=== PATIENT | male | born 1975 | race Caucasian/White ===

== ENCOUNTER 2024-03-25 17:26 | Inpatient (IN) | payer MEDICAID ==
[~2024-03-25] VITALS: Ht 160 cm; Wt 65.8 kg
[2024-03-25 17:42] VITALS: BP_SYST 115; PULSE 84; RESP 18; RESP 22; TEMP 97.8; O2SAT 98
[2024-03-25] MEDS: ONDANSETRON HCL 4 MG/2 ML VIAL IVP ONE (18:27)
[2024-03-25] MEDS: NACL 0.9% 1,000 ML IV ONE ×3 (18:29→19:53)
[2024-03-25 18:40] LABS: BASOPHILS % (AUTO) 0.2 % (0.0-2.0); EOSINOPHILS % (AUTO) 0.2 % (0.0-4.0); HEMATOCRIT 35.9 % (36-54); HEMOGLOBIN 12.8 g/dL (14.0-18.0); LYMPHOCYTES # (AUTO) 0.7 K/uL (1.0-5.5); LYMPHOCYTES % (AUTO) 10.4 % (20.5-51.5); MEAN CORPUSCULAR HEMOGLOBIN 30 pg (27-31); MEAN CORPUSCULAR HGB CONC 36 % (32-36); MEAN CORPUSCULAR VOLUME 84 fL (79.0-98.0); MONOCYTES # (AUTO) 0.5 K/uL (0.0-1.0); MONOCYTES % (AUTO) 6.5 % (1.7-9.3); NEUTROPHILS # (AUTO) 5.8 K/uL (1.8-7.7); NEUTROPHILS % (AUTO) 82.7 % (40.0-70.0); PLATELET COUNT (AUTO) 244 K/uL (130-430); RED CELL DISTRIBUTION WIDTH 12.6 % (9.0-15.0)
[2024-03-25 19:06] LABS: BLOOD GAS HCO3 16.7 mmol/L (21.0-27.0); BLOOD GAS PCO2 30.3 mmHg (32.0-45.0); BLOOD GAS PH 7.359 (7.350-7.450); BLOOD GAS PO2 82.3 mmHg (75.0-100.0)
[2024-03-25 19:07] LABS: ABG O2 SAT% ESTIMATE 95.9 % (94.0-100.0); ALLEN'S TEST POSITIVE (P); BLOOD GAS BASE EXCESS -7.5 mmol/L (-3.0-3.0); FRACTIONATED INSPIRED OXYGEN 0.21 % (0.21-100.00)
[2024-03-25 19:10] LABS: ALANINE AMINOTRANSFERASE 79 U/L (12-78); ALBUMIN 3.5 g/dL (3.4-4.8); ANION GAP 18 (5-15); ASPARTATE AMINOTRANSFERASE 34 U/L (10-37); BILIRUBIN,DIRECT 0.2 mg/dL (0.0-0.3); CALCIUM 8.6 mg/dL (8.4-11.0); CARBON DIOXIDE 22 mmol/L (23-29); GFR AFRICAN AMERICAN 5 mL/min (>90); LIPASE 108 U/L (16-77); POTASSIUM 4.6 mmol/L (3.5-5.1); SODIUM SERUM 124 mmol/L (136-145); TOTAL BILIRUBIN 0.9 mg/dL (0.0-1.0); TOTAL PROTEIN, SERUM 7.7 g/dL (6.4-8.3); UREA NITROGEN, BLOOD 97 mg/dL (8-21)
[2024-03-25 19:13] LABS: GFR NON AFRICAN-AMERICAN 4 mL/min (>90)
[2024-03-25 19:16] LABS: CREATININE 13.65 mg/dL (0.55-1.30); GLUCOSE 634 mg/dL (74-106)
[2024-03-25 19:17] LABS: CHLORIDE 84 mmol/L (98-107)
[2024-03-25 19:32] LABS: ACETONE, SERUM NEGATIVE (NEGATIVE)
[2024-03-25] MEDS ORDERED: CALC-827 PO (19:44)
[2024-03-25] MEDS ORDERED: METF1000 PO (19:44)
[2024-03-25] MEDS ORDERED: NOR10 PO (19:44)
[2024-03-25] MEDS ORDERED: INSU100V53 SQ (19:44)
[2024-03-25] MEDS ORDERED: ATOR10TA68 PO (19:44)
[2024-03-25] MEDS ORDERED: [UNRECOGNIZED DRUG - CODE] PO (19:44)
[2024-03-25] MEDS ORDERED: LISI40TA20 PO (19:44)
[2024-03-25] MEDS ORDERED: INSULIN REGULAR, HUMAN 10 UNITS/0.1 ML, 3 ML VIAL ONE (19:50)
[2024-03-25] MEDS: INSULIN REGULAR, HUMAN 100 UNITS in NS 99 ML IV ONE (20:01)
[2024-03-25 21:08] VITALS: BP_SYST 144; PULSE 84; RESP 8; TEMP 98.7; O2SAT 96
[2024-03-25 22:00] VITALS: BP_SYST 123; PULSE 83; RESP 17; O2SAT 98
[2024-03-25 22:49] LABS: CALCIUM 8.1 mg/dL (8.4-11.0); POTASSIUM 3.3 mmol/L (3.5-5.1)
[2024-03-25 22:54] LABS: BILIRUBIN,URINE NEGATIVE (NEGATIVE); BLOOD, URINE 2+ (NEGATIVE); CLARITY/URINE CLEAR (CLEAR); COLOR,URINE YELLOW (YELLOW); GLUCOSE,URINE 3+ (NEGATIVE); KETONES,URINE TRACE (NEGATIVE); LEUKOCYTE ESTERASE ,URINE NEGATIVE (NEGATIVE); NITRITE, URINE NEGATIVE (NEGATIVE); PH,URINE 6.5 (5.0-8.0); PROTEIN URINE 1+ (NEGATIVE); UROBILINOGEN,URINE 0.2 (0.2-1.0)
[2024-03-25 23:00] VITALS: BP_SYST 114; PULSE 78; RESP 17; O2SAT 97
[2024-03-25 23:05] LABS: CREATININE 12.42 mg/dL (0.55-1.30)
[2024-03-25 23:11] LABS: BARBITURATE, URINE NEGATIVE (NEG <=200); BENZODIAZEPINE, URINE NEGATIVE (NEG <=150); CANNABINOID, URINE NEGATIVE (NEG <=50); COCAINE, URINE NEGATIVE (NEG <=150); METHAMPHETAMINES SCREEN,URINE NEGATIVE (NEG <=500); OPIATE, URINE NEGATIVE (NEG <=100); PHENCYCLIDINE SCREEN,URINE NEGATIVE (NEG <=25); URINE AMPHETAMINE NEGATIVE (NEG <=500); URINE METHADONE NEGATIVE (NEG <=200); URINE OXYCODONE SCREEN NEGATIVE (NEG <=100)
[2024-03-25] MEDS: PANTOPRAZOLE SODIUM 40 MG/VIAL (PROTONIX) IVP ONE (23:11)
[2024-03-25 23:12] LABS: UR TRICYCLIC ANTIDEPRESSANTS NEGATIVE (NEG <=300)
[2024-03-25] MEDS ORDERED: cloNIDine HCL 0.1 MG TABLET PO PRN (23:30)
[2024-03-25 23:41] LABS: BACTERIA,URINE None Seen /HPF (None Seen)
[2024-03-26] VITALS (16 sets, daily range): BP systolic 92–145; PULSE 62–95; RESP 11–22; TEMP 97.5–98.8; O2SAT 96–98
[2024-03-26] MEDS ORDERED: cloNIDine HCL 0.1 MG TABLET PO PRN
[2024-03-26] MEDS: POTASSIUM CHLORIDE 20 MEQ TABLET.ER PO ONE (00:31)
[2024-03-26] MEDS: NACL 0.9% 1,000 ML IV SCH (01:05)
[2024-03-26 02:25] LABS: CALCIUM 7.9 mg/dL (8.4-11.0)
[2024-03-26 02:33] LABS: CREATININE 11.24 mg/dL (0.55-1.30)
[2024-03-26] MEDS: ONDANSETRON HCL 4 MG/2 ML VIAL IVP PRN (05:21)
[2024-03-26] MEDS: INSULIN REGULAR, HUMAN 100 UNITS/ML, 3 ML VIAL (humuLIN R) SUBCUT PRN (06:25)
[2024-03-26 06:37] LABS: BASOPHILS % (AUTO) 0.2 % (0.0-2.0); EOSINOPHILS # (AUTO) 0.1 K/uL (0.0-0.4); HEMATOCRIT 35.9 % (36-54); HEMOGLOBIN 12.4 g/dL (14.0-18.0); LYMPHOCYTES # (AUTO) 1.1 K/uL (1.0-5.5); LYMPHOCYTES % (AUTO) 15.1 % (20.5-51.5); MEAN CORPUSCULAR HEMOGLOBIN 28 pg (27-31); MEAN CORPUSCULAR HGB CONC 34 % (32-36); MEAN CORPUSCULAR VOLUME 82 fL (79.0-98.0); MONOCYTES # (AUTO) 0.7 K/uL (0.0-1.0); MONOCYTES % (AUTO) 10.3 % (1.7-9.3); NEUTROPHILS # (AUTO) 5.1 K/uL (1.8-7.7); NEUTROPHILS % (AUTO) 73.4 % (40.0-70.0); PLATELET COUNT (AUTO) 259 K/uL (130-430); RED BLOOD CELL COUNT(AUTO) 4.38 MIL/uL (4.2-6.2); RED CELL DISTRIBUTION WIDTH 12.8 % (9.0-15.0)
[2024-03-26 06:49] LABS: INR 0.9 (0.80-1.20); PROTHROMBIN TIME 9.9 SECS (9.5-12.5)
[2024-03-26 07:06] LABS: CALCIUM 8.1 mg/dL (8.4-11.0); PHOSPHORUS 7.8 mg/dL (2.7-4.5); POTASSIUM 3.3 mmol/L (3.5-5.1); TOTAL BILIRUBIN 0.6 mg/dL (0.0-1.0); TOTAL PROTEIN, SERUM 6.8 g/dL (6.4-8.3)
[2024-03-26 07:07] LABS: CREATININE 10.98 mg/dL (0.55-1.30)
[2024-03-26] MEDS: ATORVASTATIN 10 MG TABLET PO SCH (09:10)
[2024-03-26] MEDS: amLODIPine BESYLATE 10 MG TABLET PO SCH (09:10)
[2024-03-26] MEDS: PANTOPRAZOLE SODIUM 40 MG/VIAL (PROTONIX) IVP SCH (09:11)
[2024-03-26] MEDS: INSULIN GLARGINE 100 UNITS/ML, 10 ML VIAL SUBCUT ONE (11:52)
[2024-03-26] MEDS ORDERED: INSULIN LISPRO SLIDING SCALE 100 UNITS/ML, 3 ML VIAL (humaLOG) SUBCUT PRN ×2 (15:15→21:13)
[2024-03-26] MEDS: INSULIN NPH 100 UNITS/ML 10 ML VIAL SUBCUT ONE (15:47)
[2024-03-26] MEDS: INSULIN Lispro 100 UNITS/ML, 3 ML VIAL (humaLOG) SUBCUT SCH (16:55)
[2024-03-26] MEDS: INSULIN GLARGINE 100 UNITS/ML, 10 ML VIAL SUBCUT SCH (21:06)
[2024-03-27] VITALS (8 sets, daily range): BP systolic 103–153; PULSE 63–108; RESP 15–19; TEMP 97.1–98.6; O2SAT 96–98
[2024-03-27 06:31] LABS: ALBUMIN 2.7 g/dL (3.4-4.8); POTASSIUM 3.2 mmol/L (3.5-5.1); TOTAL BILIRUBIN 0.4 mg/dL (0.0-1.0); TOTAL PROTEIN, SERUM 6.4 g/dL (6.4-8.3)
[2024-03-27 06:53] LABS: BASOPHILS % (AUTO) 0.4 % (0.0-2.0); EOSINOPHILS # (AUTO) 0.1 K/uL (0.0-0.4); EOSINOPHILS % (AUTO) 1.2 % (0.0-4.0); HEMATOCRIT 33.5 % (36-54); HEMOGLOBIN 11.4 g/dL (14.0-18.0); LYMPHOCYTES # (AUTO) 1.3 K/uL (1.0-5.5); LYMPHOCYTES % (AUTO) 18.3 % (20.5-51.5); MEAN CORPUSCULAR HEMOGLOBIN 28 pg (27-31); MEAN CORPUSCULAR HGB CONC 34 % (32-36); MEAN CORPUSCULAR VOLUME 83 fL (79.0-98.0); MONOCYTES # (AUTO) 0.7 K/uL (0.0-1.0); MONOCYTES % (AUTO) 9.7 % (1.7-9.3); NEUTROPHILS % (AUTO) 70.4 % (40.0-70.0); PLATELET COUNT (AUTO) 259 K/uL (130-430); RED BLOOD CELL COUNT(AUTO) 4.05 MIL/uL (4.2-6.2); WHITE BLOOD COUNT (AUTO) 7.1 K/uL (4.8-10.8)
[2024-03-27 07:57] LABS: CREATININE 8.51 mg/dL (0.55-1.30)
[2024-03-27] MEDS ORDERED: INSULIN GLARGINE 100 UNITS/ML, 10 ML VIAL SUBCUT SCH (09:00)
[2024-03-27] MEDS: POTASSIUM CHLORIDE 20 MEQ TABLET.ER PO PRN (09:54)
[2024-03-27] MEDS: INSULIN LISPRO SLIDING SCALE 100 UNITS/ML, 3 ML VIAL (humaLOG) SUBCUT PRN (11:46)
[2024-03-27] MEDS: TAMSULOSIN HCL 0.4 MG CAP PO SCH (21:08)
[2024-03-28] VITALS (7 sets, daily range): BP systolic 111–128; PULSE 67–92; RESP 16–20; TEMP 97.4–98.4; O2SAT 96–98
[2024-03-28 06:07] LABS: HEPATITIS B SURFACE AG Negative (Negative); HEPATITIS C VIRUS AB Non Reactive (Non Reactive)
[2024-03-28 06:21] LABS: BASOPHILS % (AUTO) 0.4 % (0.0-2.0); EOSINOPHILS # (AUTO) 0.1 K/uL (0.0-0.4); EOSINOPHILS % (AUTO) 1.7 % (0.0-4.0); HEMATOCRIT 32.7 % (36-54); HEMOGLOBIN 11.4 g/dL (14.0-18.0); LYMPHOCYTES # (AUTO) 1.7 K/uL (1.0-5.5); LYMPHOCYTES % (AUTO) 24.5 % (20.5-51.5); MEAN CORPUSCULAR HEMOGLOBIN 29 pg (27-31); MEAN CORPUSCULAR HGB CONC 35 % (32-36); MEAN CORPUSCULAR VOLUME 83 fL (79.0-98.0); MONOCYTES # (AUTO) 0.5 K/uL (0.0-1.0); MONOCYTES % (AUTO) 7.4 % (1.7-9.3); NEUTROPHILS # (AUTO) 4.5 K/uL (1.8-7.7); PLATELET COUNT (AUTO) 255 K/uL (130-430); RED BLOOD CELL COUNT(AUTO) 3.97 MIL/uL (4.2-6.2); RED CELL DISTRIBUTION WIDTH 12.8 % (9.0-15.0); WHITE BLOOD COUNT (AUTO) 6.8 K/uL (4.8-10.8)
[2024-03-28 07:10] LABS: ALBUMIN 2.7 g/dL (3.4-4.8); CALCIUM 8.1 mg/dL (8.4-11.0); CREATININE 5.7 mg/dL (0.55-1.30); POTASSIUM 3.2 mmol/L (3.5-5.1); TOTAL BILIRUBIN 0.4 mg/dL (0.0-1.0); TOTAL PROTEIN, SERUM 6.4 g/dL (6.4-8.3)
[2024-03-28] MEDS: NACL 0.9% 1,000 ML IV SCH (08:51)
[2024-03-28] MEDS: INSULIN Lispro 100 UNITS/ML, 3 ML VIAL (humaLOG) SUBCUT SCH (12:27)
[2024-03-28] MEDS: CHOLECALCIFEROL (VITAMIN D3) 2,000 UNIT TABLET PO ONE (12:29)
[2024-03-28] MEDS ORDERED: INSULIN GLARGINE 100 UNITS/ML, 10 ML VIAL SUBCUT SCH (21:00)
[2024-03-28] MEDS: INSULIN GLARGINE 100 UNITS/ML, 10 ML VIAL SUBCUT SCH (21:19)
[2024-03-29] VITALS (7 sets, daily range): BP systolic 111–120; PULSE 63–78; RESP 16–18; TEMP 97.4–97.9; O2SAT 97–98
[2024-03-29 06:46] LABS: BASOPHILS % (AUTO) 0.3 % (0.0-2.0); EOSINOPHILS # (AUTO) 0.1 K/uL (0.0-0.4); EOSINOPHILS % (AUTO) 2.4 % (0.0-4.0); HEMATOCRIT 30.5 % (36-54); HEMOGLOBIN 10.7 g/dL (14.0-18.0); LYMPHOCYTES # (AUTO) 1.8 K/uL (1.0-5.5); LYMPHOCYTES % (AUTO) 31.3 % (20.5-51.5); MEAN CORPUSCULAR HEMOGLOBIN 29 pg (27-31); MEAN CORPUSCULAR HGB CONC 35 % (32-36); MEAN CORPUSCULAR VOLUME 82 fL (79.0-98.0); MONOCYTES # (AUTO) 0.4 K/uL (0.0-1.0); MONOCYTES % (AUTO) 7.4 % (1.7-9.3); NEUTROPHILS # (AUTO) 3.4 K/uL (1.8-7.7); NEUTROPHILS % (AUTO) 58.6 % (40.0-70.0); PLATELET COUNT (AUTO) 252 K/uL (130-430); RED BLOOD CELL COUNT(AUTO) 3.71 MIL/uL (4.2-6.2); RED CELL DISTRIBUTION WIDTH 12.8 % (9.0-15.0); WHITE BLOOD COUNT (AUTO) 5.8 K/uL (4.8-10.8)
[2024-03-29] MEDS: CHOLECALCIFEROL (VITAMIN D3) 2,000 UNIT TABLET PO SCH (08:20)
[2024-03-29 08:22] LABS: ALBUMIN 2.7 g/dL (3.4-4.8); CALCIUM 8.1 mg/dL (8.4-11.0); CREATININE 3.75 mg/dL (0.55-1.30); PHOSPHORUS 3.9 mg/dL (2.7-4.5); POTASSIUM 3.3 mmol/L (3.5-5.1); TOTAL BILIRUBIN 0.4 mg/dL (0.0-1.0); TOTAL PROTEIN, SERUM 6.3 g/dL (6.4-8.3)
[2024-03-29] MEDS ORDERED: INSU100V SUBCUT (17:50)
[2024-03-30 00:10] VITALS: BP_SYST 93; PULSE 65; RESP 16; TEMP 98.2; O2SAT 96
[2024-03-30 01:06] LABS: QUANTIFERON TB GOLD Negative (Negative)
[2024-03-30 08:00] VITALS: O2SAT 98
[2024-03-30 10:53] LABS: CALCIUM 8.5 mg/dL (8.4-11.0); CREATININE 3.02 mg/dL (0.55-1.30)
[2024-03-30 13:02] VITALS: BP_SYST 120; PULSE 61; RESP 17; TEMP 98; O2SAT 98
[2024-03-30 15:56] VITALS: BP_SYST 115; PULSE 61; RESP 17; TEMP 97.5; O2SAT 98
[2024-03-30 16:02] VITALS: BP_SYST 122; PULSE 78; RESP 18; TEMP 98.4; O2SAT 96
== END 2024-03-30 17:30 | disposition home health service (06) | DRG 420 ==
LOC: SED 17:26 → SIC 19:39 → STU 03-27 14:48 → SMU 03-30 03:00
PROVIDERS: ADMIT Internal Medicine; ATTEND Internal Medicine
DX: E11.65 Type 2 diabetes mellitus with hyperglycemia (principal); N17.0 Acute kidney failure with tubular necrosis; R65.11 Systemic inflammatory response syndrome (SIRS) of non-infectious origin with acute organ dysfunction; D63.8 Anemia in other chronic diseases classified elsewhere; E83.51 Hypocalcemia; E11.21 Type 2 diabetes mellitus with diabetic nephropathy; E87.6 Hypokalemia; N20.0 Calculus of kidney; E78.5 Hyperlipidemia, unspecified; I12.9 Hypertensive chronic kidney disease with stage 1 through stage 4 chronic kidney disease, or unspecified chronic kidney disease; N18.9 Chronic kidney disease, unspecified; Z79.4 Long term (current) use of insulin; Z79.899 Other long term (current) drug therapy; Z88.8 Allergy status to other drugs, medicaments and biological substances; Z90.49 Acquired absence of other specified parts of digestive tract
CPT/HCPCS: 36415; 36600; 76770; 80048; 80053; 80061; 80076; 80307; 81000; 81001; 81015; 82009; 82550; 82803; 82948; 83037; 83605; 83690; 83735; 84100; 85025; 85610; 85730; 86480; 86706; 86803; 87340; 93005; 99291; G0378; J1815; J2405; J2470